=== PATIENT | female | born 1995 | race Caucasian/White ===

== ENCOUNTER 2016-03-27 15:38 | Emergency (ER) | payer MEDICAID, OTHER ==
[2016-03-27 15:45] VITALS: TEMP 98; BMI 30.2
[2016-03-27 16:12] LABS: LEUKOCYTES/URINE NEG (NEGATIVE); NITRITE/URINE NEG (NEGATIVE); URINE OCCULT BLOOD NEG (NEG/TRACE)
[2016-03-27 16:15] LABS: BLOOD UREA NITROGEN 16 MG/DL (7-17); CALCIUM 9.4 MG/DL (8.4-10.2); CALCULATED OSMOLALITY 273 MOs/Kg (270-290); CHLORIDE 105 mEq/L (98-107); GLUCOSE 89 MG/DL (70-99); SODIUM LEVEL 142 mEq/L (137-146)
[2016-03-27] MEDS ORDERED: PROMETHAZINE 25 MG/ML VIAL IV ONE (16:33)
[2016-03-27] MEDS: NS 1,000 ML IV SCH ×2 (16:42→17:59)
[2016-03-27 16:54] LABS: SEG NEUTROPHIL 93 % (45-76)
--- NOTE | 2016-03-27 17:08 | EDPRACDOC ---
- General Information Chief Complaint: Nausea,Vomiting,Diarrhea Stated Complaint: N/V, ABD PAIN, SHOB, TYPE 1 DIABETIC Time Seen by Provider: 03/27/16 16:13 Information Source: Patient Mode Of Arrival: Car Home Medications: Home Medications Insulin Aspart [Novolog] 0 units SQ .ACHS SSI 03/27/16 Promethazine [Phenergan] 25 mg PO Q6-8H PRN #20 tab 03/27/16 Allergies/Adverse Reactions: Allergies Allergy/AdvReac Type Severity Reaction Status Date / Time No Known Allergies Allergy Verified 03/27/16 15:55 - History of Present Illness Onset: today HPI: PT PRESENTS TODAY WITH N/V AND EPIGASTRIC PAIN SINCE THIS MORNING. PT IS SEVERE DIABETIC AND STATES THAT SHE "GETS THIS WAY WHEN HER SUGARS ARE HIGH". STATES SHE HAS BEEN COMPLIANT WITH MEDICATIONS. STATES HAD A SICK CONTACT WITH N/V. DENIES FEVER, GOVEA, CP, SHOB, DYSURIA. Symptoms Occured: Reports: Spontaneous Duration: Reports: Continuous Recent: Reports: None Pain Quality: Reports: Burning, Cramping, Sharp Pain Severity: Moderate Pain Location: Reports: Epigastric History of: Denies: UTI Relevant History of: Reports: Diabetes Associated Signs & Symptoms: Reports: Nausea, Vomiting, Diarrhea Oral Intake: Decreased Urinary Output: Decreased ED Past Medical History - History Reviewed Yes Nurses notes reviewed and agree except as marked - Patient Medical History Neurological History: Denies: Cerebrovascular Accident, Seizures, Dementia, Guillian-Neche Syndrome, Parkinson's, Multiple Sclerosis Cardiac History: Denies: Hypertension, Congestive Heart Failure, Heart Attack, Cardiac Catheterization, CABG, Pacemaker, Syncope Respiratory History: Reports: Asthma (childhood). Denies: COPD, Pneumonia, Emphysema, Pulmonary Embolism GI/ History: Denies: Renal Disease, Renal Failure, Urinary Tract Infection, Kidney Stones, Ulcer, Diverticulosis, Pancreatitis Musculoskeletal History: Denies: Arthritis, Gout Psychological History: Reports: Anxiety. Denies: Depression, Bipolar Disorder, Substance Use Disorder Systemic History: Reports: Diabetes (Insulin-dependent diabetes mellitus type 1) . Denies: Anemia, Hyperthyroidism, Hypothyroidism Surgical History: Reports: Tonsillectomy/Adnoidectomy. Denies: Cholecystectomy , CABG, Angioplasty, Cardiac Catheterization, Hernia Surgery - Family Medical History Reports: Hypertension (father), Diabetes. Denies: Cancer, Stroke, Cardiac Disorders - Social Medical History Smoking Status: Never smoker Social History: Denies: Substance Use Disorder EDM Review of Systems - Review of Systems ROS Negative Except as Marked: Yes All systems reviewed and were negative except as marked Constitutional: Fatigue, Loss of Appetite, Weakness Respiratory: No Symptoms Reported Cardiovascular: No Symptoms Reported Gastrointestinal: Diarrhea, Nausea, Pain, Vomiting Genitourinary: No Symptoms Reported Neurological: No Symptoms Reported Musculoskeletal: No Symptoms Reported Integumentary: No Symptoms Reported - Physical Exam Constitutional: Alert, Distress Oriented to: Time, Person, Place Last recorded Vital Signs: Last Vital Signs Temp 98.0 F 03/27/16 15:42 Pulse 131 H 03/27/16 15:42 Resp 20 03/27/16 15:42 BP 123/69 03/27/16 15:42 Pulse Ox 99 03/27/16 15:42 Oxygen Pulse Oxygen Saturation 99 O2 Device Room Air Oxygen Flow Rate Fraction of Inspired Oxygen ( FIO2) - HEENT Head: Normal Eye Exam: Normal Neck: Normal, Denies Pain, Midline - Respiratory/Cardiovascular Respiratory: Normal - CTA Cardiovascular: Tachycardia - GI Auscultation: Decreased Palpation: Normal Tenderness: Moderate, Epigastric - Musculoskeletal Back: Normal Extremities: Normal - Integumentary Skin: Normal Lymphatics: Normal - Neurologic Cerebellar: Normal Mood Description: Normal Thought: Coherent Perception: Normal - Re-evaluation Re-evaluation 1 Re-evaluation Time: 17:38 PT DENIES ABD PAIN AT THIS TIME. FEELS MUCH BETTER AND EATING ICE CHIPS. CASE DISCUSSED WITH [facility] AND PT OK FOR HOME. - Results 03/27/16 15:52 03/27/16 15:52 WBC 15.7 xk/uL (3.8-10.8) H 03/27/16 15:52 RBC 4.94 xM/uL (4.20-5.40) 03/27/16 15:52 Hgb 13.8 g/dL (12.0-16.0) 03/27/16 15:52 Hct 42.6 % (36-47) 03/27/16 15:52 MCV 86 fL (81-99) 03/27/16 15:52 MCH 27.9 pg (27-32) 03/27/16 15:52 MCHC 32.3 g/dl (33-36) L 03/27/16 15:52 RDW 14.2 % (11.5-14.5) 03/27/16 15:52 Plt Count 379 xk/uL (130-400) 03/27/16 15:52 MPV 9.0 fL (7.4-10.4) 03/27/16 15:52 Neut % (Auto) Cancelled 03/27/16 15:52 Lymph % (Auto) Cancelled 03/27/16 15:52 Mchenry % (Auto) Cancelled 03/27/16 15:52 Eos % (Auto) Cancelled 03/27/16 15:52 Baso % (Auto) Cancelled 03/27/16 15:52 Absolute Neuts (auto) Cancelled 03/27/16 15:52 Absolute Lymphs (auto) Cancelled 03/27/16 15:52 Seg Neuts % (Manual) 93 % (45-76) H 03/27/16 15:52 Band Neutrophils % 2 % (0-5) 03/27/16 15:52 Lymphocytes % (Manual) 1 % (17-44) L 03/27/16 15:52 Monocytes % (Manual) 4 % (0-10) 03/27/16 15:52 Absolute Neutrophils 14.92 xk/uL (1.7-8.2) H 03/27/16 15:52 Absolute Lymphocytes 0.16 xk/uL (0.65-4.75) L 03/27/16 15:52 Platelet Estimate Norm (NORMAL) 03/27/16 15:52 RBC Morphology 1+ aniso 03/27/16 15:52 Sodium 142 mEq/L (137-146) 03/27/16 15:52 Potassium 4.1 mEq/L (3.5-5.1) 03/27/16 15:52 Chloride 105 mEq/L (98-107) 03/27/16 15:52 Carbon Dioxide 12 mMOL/L (22-33) L 03/27/16 15:52 Anion Gap 29 mEq/L (8-16) H 03/27/16 15:52 BUN 16 MG/DL (7-17) 03/27/16 15:52 Creatinine 0.50 MG/DL (0.52-1.04) L 03/27/16 15:52 Estimated GFR (MDRD) > 60 mL/min (>=60) 03/27/16 15:52 Glucose 89 MG/DL (70-99) 03/27/16 15:52 POC Capillary Glucose 78 MG/DL (70-99) 03/27/16 15:46 Calculated Osmolality 273 MOs/Kg (270-290) 03/27/16 15:52 Calcium 9.4 MG/DL (8.4-10.2) 03/27/16 15:52 Total Bilirubin 0.9 MG/DL (0.2-1.3) 03/27/16 15:52 AST 54 IU/L (14-36) H 03/27/16 15:52 ALT 56 IU/L (9-52) H 03/27/16 15:52 Alkaline Phosphatase 134 IU/L (45-300) 03/27/16 15:52 Total Protein 8.0 G/DL (6.3-8.2) 03/27/16 15:52 Albumin 4.3 G/DL (3.5-5.0) 03/27/16 15:52 Lipase 28 U/L (23-300) 03/27/16 15:52 Urine Color Yellow 03/27/16 15:52 Urine Clarity Clear 03/27/16 15:52 Urine pH 6.0 (5.0-8.0) 03/27/16 15:52 Ur Specific Berkley 1.025 (1.003-1.035) 03/27/16 15:52 Urine Protein 1+ (NEG/TRACE) H 03/27/16 15:52 Urine Glucose (UA) 3+ (NEGATIVE) H 03/27/16 15:52 Urine Ketones 3+ (NEGATIVE) H 03/27/16 15:52 Urine Occult Blood Neg (NEG/TRACE) 03/27/16 15:52 Urine Nitrite Neg (NEGATIVE) 03/27/16 15:52 Urine Bilirubin Neg (NEGATIVE) 03/27/16 15:52 Urine Urobilinogen <2.0 MG/DL (0-1) 03/27/16 15:52 Ur Leukocyte Esterase Neg (NEGATIVE) 03/27/16 15:52 Urine RBC 2-5 (0-5) 03/27/16 15:52 Urine WBC 2-5 (0-5) 03/27/16 15:52 Ur Epithelial Cells 2+ 03/27/16 15:52 Urine Bacteria Few (NEG/FEW) 03/27/16 15:52 Urine Mucus Sm amt (NEG/OCC) 03/27/16 15:52 Urine Test Neg (NEGATIVE) 03/27/16 15:52 Lab Results 03/27/16 03/27/16 03/27/16 15:52 15:52 15:52 WBC RBC Hgb Hct MCV MCH MCHC RDW Plt Count MPV Neut % (Auto) Lymph % (Auto) Mchenry % (Auto) Eos % (Auto) Baso % (Auto) Absolute Neuts (auto) Absolute Lymphs (auto) Seg Neuts % (Manual) Band Neutrophils % Lymphocytes % (Manual) Monocytes % (Manual) Absolute Neutrophils Absolute Lymphocytes Platelet Estimate RBC Morphology Sodium Potassium Chloride Carbon Dioxide Anion Gap BUN Creatinine Estimated GFR (MDRD) Glucose POC Capillary Glucose Calculated Osmolality Calcium Total Bilirubin AST ALT Alkaline Phosphatase Total Protein Albumin Lipase 28 Urine Color Yellow Urine Clarity Clear Urine pH 6.0 Ur Specific Berkley 1.025 Urine Protein 1+ H Urine Glucose (UA) 3+ H Urine Ketones 3+ H Urine Occult Blood Neg Urine Nitrite Neg Urine Bilirubin Neg Urine Urobilinogen <2.0 Ur Leukocyte Esterase Neg Urine RBC 2-5 Urine WBC 2-5 Ur Epithelial Cells 2+ Urine Bacteria Few Urine Mucus Sm amt Urine Test Neg 03/27/16 03/27/16 03/27/16 15:52 15:52 15:46 WBC 15.7 H RBC 4.94 Hgb 13.8 Hct 42.6 MCV 86 MCH 27.9 MCHC 32.3 L RDW 14.2 Plt Count 379 MPV 9.0 Neut % (Auto) Cancelled Lymph % (Auto) Cancelled Mchenry % (Auto) Cancelled Eos % (Auto) Cancelled Baso % (Auto) Cancelled Absolute Neuts (auto) Cancelled Absolute Lymphs (auto) Cancelled Seg Neuts % (Manual) 93 H Band Neutrophils % 2 Lymphocytes % (Manual) 1 L Monocytes % (Manual) 4 Absolute Neutrophils 14.92 H Absolute Lymphocytes 0.16 L Platelet Estimate Norm RBC Morphology 1+ aniso Sodium 142 Potassium 4.1 Chloride 105 Carbon Dioxide 12 L Anion Gap 29 H BUN 16 Creatinine 0.50 L Estimated GFR (MDRD) > 60 Glucose 89 POC Capillary Glucose 78 Calculated Osmolality 273 Calcium 9.4 Total Bilirubin 0.9 AST 54 H ALT 56 H Alkaline Phosphatase 134 Total Protein 8.0 Albumin 4.3 Lipase Urine Color Urine Clarity Urine pH Ur Specific Berkley Urine Protein Urine Glucose (UA) Urine Ketones Urine Occult Blood Urine Nitrite Urine Bilirubin Urine Urobilinogen Ur Leukocyte Esterase Urine RBC Urine WBC Ur Epithelial Cells Urine Bacteria Urine Mucus Urine Test Decision Time to Discharge: 17:38 - Departure Disposition: Home Condition: Improved Final Diagnosis: Nausea and vomiting Instructions: Acute Nausea and Vomiting (ED) Education/Counseling Given To: Patient Education/Counseling Given Regarding: Diagnosis, Treatment, Follow Up Referrals: Elmer Richards MD [Primary Care Provider] - One Week Prescriptions: Promethazine [Phenergan] 25 mg PO Q6-8H PRN #20 tab PRN Reason: Nausea/Vomiting Additional Instructions: Drink sips of Gatorade every 2-3 minutes while awake. Do NOT drink large volumes of fluid at once. If you vomit, take the nausea-vomiting medicine prescribed, wait ~ 30 minutes, and restart the sipping process. Return to the Emergency Department if you think you are getting dehydrated, have persistent abdominal pain that is unrelenting, have worse or different symptoms, or any concerns.
[2016-03-27 17:24] LABS: ALLEN'S TEST PASS; BEb -6.1 (+/- 2); TCO2 18.2 MMOL/L (23-27)
[2016-03-27 17:25] LABS: ABG Draw Site Right Radial
[2016-03-27 18:03] VITALS: BP 104/57; PULSE 108
== END 2016-03-27 18:00 | disposition home or self-care (01) ==
LOC: ED 15:38
DX: R11.2 Nausea with vomiting, unspecified (principal); F41.9 Anxiety disorder, unspecified; E10.9 Type 1 diabetes mellitus without complications; Z79.4 Long term (current) use of insulin
CPT/HCPCS: 36600; 80053; 81001; 81025; 82803; 82962; 83690; 85007; 85027; 87804; 99284; J2550; 36415; 96361; 96374